=== PATIENT | female | born 1930 | race Caucasian/White ===

== ENCOUNTER 2017-11-02 21:08 | Inpatient (IN) | payer MEDICARE, MEDICAID ==
--- NOTE | 2017-11-02 22:01 | ED Physician Chart ---
ED Chief Complaint/HPI - Patient Information Date Seen:: 11/02/17 Time Seen:: 21:40 Chief Complaint:: leg swelling History of Present Illness:: Patient's had ankle and lower leg swelling for the last 3 months increased her last one week. She's also had mild shortness of breath but no complaint of chest pain. Allergies:: Allergies Allergy/AdvReac Type Severity Reaction Status Date / Time No Known Allergies Allergy Verified 11/02/17 21:39 Vitals:: Vital Signs - 8 hr 11/02/17 21:15 Temp 97.5 F HR 73 RR 18 BP 149/97 O2 Sat % 98 Historian:: Family Member Review:: Nurse's Note Reviewed ED Review of Systems - Review of Systems General/Constitutional: No fever, No chills Skin: No skin lesions Head: No headache Eyes: No loss of vision ENT: No earache Neck: No neck pain Cardio Vascular: No chest pain Pulmonary: SOB GI: No nausea, No vomiting, No diarrhea G/U: No dysuria Musculoskeletal: No bone or joint pain Endocrine: No polyuria, No polydipsia Psychiatric: Prior psych history Hematopoietic: No bruising Allergic/Immuno: No urticaria Neurological: No syncope ED Past Medical History - Past Medical History Past Medical History: HTN, Arthritis, Dementia, Other (depression) Family History: None Social History: Non Smoker, No Alcohol Surgical History: other (laparotomy) Psychiatricy History: None Family Medical History - Family Member Mother History Unknown: Yes ED Physical Exam - Physical Examination General/Constitutional: Well-developed, well-nourished, Alert, No distress Head: Atraumatic Eyes: Lids, conjuctiva normal, PERRL Skin: Nl inspection ENMT: External ears, nose nl, TM canals nl, Nasal exam nl Other ENMT comments:: Dentures Neck: No nuchal rigidity Respiratory: Nl effort/Exclusion, Clear to Auscultation Cardio Vascular: RRR, No murmur, gallop, rubs, NL S1 S2 GI: No tenderness/rebounding/guarding, Normal BS's Extremities: Normal digits & nails Neuro/Psych: No focal deficits Misc: Normal back ED Labs/Radiology/EKG Results - Lab Results Results: Laboratory Results - last 24 hr 11/02/17 11/02/17 11/02/17 22:07 22:07 22:07 WBC 3.1 L RBC 3.73 L Hgb 11.4 L Hct 33.1 L MCV 88.7 MCH 30.6 MCHC Differential 34.4 RDW 14.3 Plt Count 97 L MPV 10.3 Add Manual Diff YES Sodium 137 Potassium 3.9 Chloride 105 Carbon Dioxide 29.6 Anion Gap 6.3 L BUN 12 Creatinine 0.6 Est GFR ( Amer) TNP Est GFR (Non-Af Amer) TNP BUN/Creatinine Ratio 20.0 Glucose 100 Calcium 9.3 Total Bilirubin 1.2 H AST 64 H ALT 43 Alkaline Phosphatase 121 H Troponin I B-Natriuretic Peptide 139.0 H Total Protein 6.1 Albumin 3.0 L Globulin 3.1 Albumin/Globulin Ratio 1.0 11/02/17 22:07 WBC RBC Hgb Hct MCV MCH MCHC Differential RDW Plt Count MPV Add Manual Diff Sodium Potassium Chloride Carbon Dioxide Anion Gap BUN Creatinine Est GFR ( Amer) Est GFR (Non-Af Amer) BUN/Creatinine Ratio Glucose Calcium Total Bilirubin AST ALT Alkaline Phosphatase Troponin I < 0.01 L B-Natriuretic Peptide Total Protein Albumin Globulin Albumin/Globulin Ratio - Radiology Results Results: Chest x-ray negative Laboratory Results - last 24 hr 11/02/17 11/02/17 11/02/17 22:07 22:07 22:07 WBC 3.1 L RBC 3.73 L Hgb 11.4 L Hct 33.1 L MCV 88.7 MCH 30.6 MCHC Differential 34.4 RDW 14.3 Plt Count 97 L MPV 10.3 Add Manual Diff YES Sodium 137 Potassium 3.9 Chloride 105 Carbon Dioxide 29.6 Anion Gap 6.3 L BUN 12 Creatinine 0.6 Est GFR ( Amer) TNP Est GFR (Non-Af Amer) TNP BUN/Creatinine Ratio 20.0 Glucose 100 Calcium 9.3 Total Bilirubin 1.2 H AST 64 H ALT 43 Alkaline Phosphatase 121 H Troponin I B-Natriuretic Peptide 139.0 H Total Protein 6.1 Albumin 3.0 L Globulin 3.1 Albumin/Globulin Ratio 1.0 11/02/17 22:07 WBC RBC Hgb Hct MCV MCH MCHC Differential RDW Plt Count MPV Add Manual Diff Sodium Potassium Chloride Carbon Dioxide Anion Gap BUN Creatinine Est GFR ( Amer) Est GFR (Non-Af Amer) BUN/Creatinine Ratio Glucose Calcium Total Bilirubin AST ALT Alkaline Phosphatase Troponin I < 0.01 L B-Natriuretic Peptide Total Protein Albumin Globulin Albumin/Globulin Ratio - EKG Interpretations Rate & Rhythm: normal sinus rhythm with a rate is 72 [place]: normal axis ED Septic Shock - . Is Septic Shock (SBP<90, OR Lactate>4 mmol\L) present?: No - <6hrs of presentation: Vital Signs: Vital Signs - 8 hr 11/02/17 21:15 Temp 97.5 F HR 73 RR 18 BP 149/97 O2 Sat % 98 ED Reassessment (Disposition) - Reassessment Reassessment Condition:: Unchanged - Diagnosis Diagnosis:: Lower extremity edema; altered mental status; dementia; pancytopenia - Patient Disposition Admitted to:: Med/Surg Spoke to:: Chris Giraldo Admitting Medical Physician:: Chris Giraldo Condition at Disposition:: Stable, Unchanged
[2017-11-02 22:15] LABS: HEMOGLOBIN 11.4 gm/dL (12-16)
[2017-11-02 22:24] LABS: HEMATOCRIT 33.1 % (41.0-60); MEAN CELL VOLUME 88.7 fl (81-100); MEAN CORPUSCULAR HEMOGLOBIN 30.6 pg (27.0-31.0); MEAN CORPUSCULAR HGB CONC 34.4 pg (28.0-36.0); MEAN PLATELET VOLUME 10.3 fl; PLATELET COUNT 97 Th/cmm (150-400); RED BLOOD COUNT 3.73 Mil/cmm (3.80-5.20); RED CELL DISTRIBUTION WIDTH 14.3 % (11.5-20.0)
[2017-11-02 22:27] LABS: WHITE BLOOD COUNT 3.1 Th/cmm (4.8-10.8)
[2017-11-02 22:32] LABS: ALKALINE PHOSPHATASE 121 U/L (34-104); ANION GAP 6.3 (7.0-16.0); BILIRUBIN,TOTAL 1.2 mg/dL (0.3-1.0); BUN - UREA NITROGEN 12 mg/dL (7-25); CALCIUM SERUM 9.3 mg/dL (8.6-10.3); CARBON DIOXIDE 29.6 mEq/L (21.0-31.0); CHLORIDE 105 mEq/L (98-107); CREATININE - SERUM 0.6 mg/dL (0.6-1.2); GLUCOSE 100 mg/dL (70-105); POTASSIUM SERUM 3.9 mEq/L (3.5-5.1); SGOT 64 U/L (13-39); SGPT/ALT 43 U/L (7-52); SODIUM SERUM 137 mEq/L (136-145); TOTAL PROTEIN,SERUM 6.1 gm/dL (6.0-8.3)
[2017-11-02 23:20] LABS: BAND NEUTROPHILE 2 % (0-10); EOSINOPHIL 4 % (0-5); LYMPHOCYTE 25 % (20-50); MONOCYTE 15 % (2-10); NEUTROPHILS 54 % (40-80); PLATELET ESTIMATE ADEQUATE (NORMAL)
[2017-11-03] MEDS ORDERED: Haloperidol Lactate 5 mg/mL 1mL Vial IM PRN (01:45)
[2017-11-03] MEDS ORDERED: Haloperidol Lactate 5 mg/mL 1mL Vial ONE (01:58)
[2017-11-03] MEDS ORDERED: Haloperidol Lactate 5 mg/mL 1mL Vial IM ONE (02:15)
[2017-11-03 03:26] VITALS: BP 144/81
[2017-11-03 08:03] LABS: % BASOPHILS 1.2 % (0.0-2.0); % EOSINOPHILS 7.4 % (0.0-5.0); % LYMPHOCYTES 30.6 % (20.0-50.0); % NEUTROPHILS 46.8 % (40.0-80.0); EOSINOPHILE ABSOLUTE 0.2 Th/cmm (0.1-0.4); HEMATOCRIT 33.3 % (41.0-60); HEMOGLOBIN 11.2 gm/dL (12-16); MEAN CELL VOLUME 89.3 fl (81-100); MEAN CORPUSCULAR HEMOGLOBIN 30.1 pg (27.0-31.0); MEAN CORPUSCULAR HGB CONC 33.7 pg (28.0-36.0); MEAN PLATELET VOLUME 10.4 fl; MONOCYTE ABSOLUTE 0.4 Th/cmm (0.3-1.0); NEUTROPHILE ABSOLUTE 1.6 Th/cmm (1.8-8.0); PLATELET COUNT 71 Th/cmm (150-400); RED BLOOD COUNT 3.73 Mil/cmm (3.80-5.20); RED CELL DISTRIBUTION WIDTH 14.4 % (11.5-20.0)
--- NOTE | 2017-11-03 08:11 | Consultation ---
DATE OF CONSULTATION: 11/03/2017 AGE: 87. SEX: Female. PHYSICIAN: Dr. Giraldo. ENGINEER FISHING VESSEL: Dr. Hernandez. TYPE OF THE REPORT: Psychiatric consult. REASON FOR THE CONSULT: Agitation and confusion. HISTORY OF PRESENT ILLNESS: The patient is an 87-year-old female who was admitted to the hospital because of agitation and confusion. Chart reviewed and patient interviewed and discussed the patient's condition with the staff and reviewed records and labs. The patient is still increasingly agitated and increasingly irritable. The patient also is having trouble with her mood. The patient also has been in irritable and in angry mood and was not able to answer any of my questions currently in spite of trying to tell her simple sentences in [place] language. She was preoccupied and responding. The patient has lower extremity edema and she also has altered level of conscious and dementia. PAST PSYCHIATRIC HISTORY: The patient has history of dementia. Otherwise, no other psychiatric issues. PAST MEDICAL HISTORY: The patient admitted with lower extremity edema. SOCIAL HISTORY: The patient lives in half-way. No known alcohol or drug use. MENTAL STATUS EXAM: The patient appears her stated age. Irritable mood. Flat affect. Thought process was confusion. ASSESSMENT: PRIMARY DIAGNOSIS: Psychosis, unspecified. SECONDARY DIAGNOSIS: Dementia, moderate to severe, with psychotic features. TREATMENT PLAN: We will monitor the patient's behavior closely. We will start Seroquel on a p.r.n. basis. We will monitor her behavior. The patient might need admission to [facility]. Thanks to Dr. Giraldo and we will follow with you. [facility]# [id number]
[2017-11-03 08:17] LABS: WHITE BLOOD COUNT 3.2 Th/cmm (4.8-10.8)
[2017-11-03 08:20] LABS: ANION GAP 6.4 (7.0-16.0); BUN - UREA NITROGEN 9 mg/dL (7-25); CARBON DIOXIDE 25.8 mEq/L (21.0-31.0); CHLORIDE 108 mEq/L (98-107); CREATININE - SERUM 0.5 mg/dL (0.6-1.2); GLUCOSE 86 mg/dL (70-105); POTASSIUM SERUM 3.2 mEq/L (3.5-5.1); SODIUM SERUM 137 mEq/L (136-145)
--- NOTE | 2017-11-03 08:36 | Diagnostic Imaging Report ---
Portable chest x-ray Time: 2244 History: Edema Allowing for portable technique the heart size is normal. No focal pulmonary parenchymal processes. No hilar or mediastinal abnormalities. Impression: No acute abnormalities.
[2017-11-03] MEDS: Furosemide 40 mg/4mL UDC PO SCH (09:55)
[2017-11-03 14:28] LABS: URINE BILIRUBIN NEGATIVE (NEGATIVE); URINE BLOOD NEGATIVE (NEGATIVE); URINE GLUCOSE (UA) NEGATIVE (NEGATIVE); URINE KETONE NEGATIVE (NEGATIVE); URINE LEUKOCYTE ESTERASE NEGATIVE (NEGATIVE); URINE NITRATE NEGATIVE (NEGATIVE); URINE PH 6.5 (4.6 - 8.0); URINE PROTEIN NEGATIVE (NEGATIVE); URINE SOURCE MIDSTREAM; URINE UROBILINOGEN 0.2 E.U./dL (0.2 - 1.0)
[2017-11-03 14:34] LABS: URINE CLARITY CLEAR (CLEAR); URINE COLOR YELLOW
[2017-11-03 14:35] LABS: URINE MICROSCOPIC INDICATED? NO
[2017-11-03] MEDS ORDERED: Potassium Chloride 20 mEq ER Tab PO ONE (20:30)
--- NOTE | 2017-11-03 21:51 | Consultation ---
DATE OF CONSULTATION: 11/03/2017 HISTORY AND PHYSICAL: This 87-year-old female patient who has major depression, psychosis. The patient has aggressive behavior. Following this, the patient was brought to the Emergency Room. The patient did complain of swelling both lower extremities at the ankle area and hence the patient is admitted. Cardiac consult requested. PAST MEDICAL HISTORY: Hypertension, dementia, psychosis, major depression, pancytopenia. FAMILY HISTORY: Unremarkable. SOCIAL HISTORY: No history of smoking, alcohol abuse. ALLERGIES: No known allergies. PHYSICAL EXAMINATION: VITAL SIGNS: Blood pressure 140/90, pulse 70, respirations 20. HEAD: Normocephalic. No lumps or bumps. EYES: Pupils equal, reactive to light. Fundi show AV nicking, sclerae white, conjunctivae pink. NECK: Carotid 2+. Normal upstroke. JVD flat. Thyroid not palpable. Lymph nodes not palpable. CHEST: Shows increased AP diameter. No kyphosis, scoliosis. LUNGS: Bilateral bronchovesicular breath sounds. Occasional wheeze. No rales. HEART: PMI fifth intercostal space with lateral to midclavicular line. S1, S2. No S3, soft S4, soft systolic murmur. ABDOMEN: Soft. Liver, spleen not palpable. No organomegaly. Bowel sounds active. NEUROLOGIC: Unremarkable. EXTREMITIES: Peripheral pulses 2+. No pedal edema. CLINICAL IMPRESSION: 1. Mild congestive heart failure. BNP 130. 2. Hypertension. 3. Dementia. 4. Psychosis. 5. Major depression. 6. Pancytopenia. PLAN: The patient to be given Lasix 40 mg IV, now echocardiogram for left ventricular function and have a psych evaluation. [facility]# [id number]
[2017-11-04] MEDS: Furosemide 40 mg/4mL UDC PO SCH (08:52)
[2017-11-04 10:43] LABS: ANION GAP 8.7 (7.0-16.0); BUN - UREA NITROGEN 12 mg/dL (7-25); CARBON DIOXIDE 24.4 mEq/L (21.0-31.0); CHLORIDE 109 mEq/L (98-107); CREATININE - SERUM 0.7 mg/dL (0.6-1.2); GLUCOSE 141 mg/dL (70-105); POTASSIUM SERUM 4.1 mEq/L (3.5-5.1); SODIUM SERUM 138 mEq/L (136-145)
--- NOTE | 2017-11-04 12:54 | History & Physical ---
ADMIT DATE: 11/04/2017 CHIEF COMPLAINT: Agitation and aggressive behavior. HISTORY OF PRESENT ILLNESS: This is an 87-year-old female who was brought into the Emergency Room from long term facility due to aggressive behavior and agitation towards others and also the patient has been complaining of bilateral leg swelling for the past 3 months. REVIEW OF SYSTEMS: GENERAL: This is an 87-year-old female that appears as stated, no fever, no chills, no weakness. HEENT: Head: No headache. No dizziness. Eyes: No eye pain. No blurring of vision. NECK: No neck pain. No nuchal rigidity. CHEST: No chest pain. No palpitation. PULMONARY: No coughing. No shortness of breath. GASTROINTESTINAL: No abdominal pain. No constipation. No diarrhea. MUSCULOSKELETAL: No joint pain. No muscle pain. SOCIAL HISTORY: The patient lives in a long term facility prior to hospitalization. PSYCHIATRIC HISTORY: Includes dementia. PAST MEDICAL HISTORY: Includes hypertension. PAST SURGICAL HISTORY: Unremarkable. FAMILY HISTORY: Unremarkable. PHYSICAL EXAMINATION: VITAL SIGNS: Temperature 97.4, heart rate of 69, blood pressure 139/71, respiration of 18, 97% on room air. HEENT: Head is atraumatic, normocephalic. Eyes: Bilateral conjunctivae are clear. Bilateral pupils are equally round and reactive. NECK: Supple. No JVD. CARDIOVASCULAR: S1 and S2 without murmur. PULMONARY: Clear to auscultation. GASTROINTESTINAL: Soft and nontender without guarding. Positive bowel sounds. MUSCULOSKELETAL: No clubbing. No cyanosis noted. ASSESSMENT: 1. Dementia. 2. Hypertension. 3. Mild congestive heart failure. 4. Depression. 5. Osteoarthritis. PLAN: We will admit the patient to Med/Surg unit and will follow up with a psychiatrist and a calender worker helper. We are also going to do medication reconciliation accordingly. Treatment plans were discussed with the patient's nurse. Treatment plans were discussed with Dr. Giraldo. JOB# [id number]
[2017-11-04] MEDS ORDERED: DONEPEZIL HCL 23 MG PO SCH (21:00)
[2017-11-04] MEDS ORDERED: Non-Formulary Item 1 EA (Melatonin [Melatonin] 5 MG) PO SCH (21:00)
[2017-11-05 05:55] LABS: % EOSINOPHILS 4.3 % (0.0-5.0); % LYMPHOCYTES 20.4 % (20.0-50.0); % MONOCYTES 12.4 % (2.0-10.0); % NEUTROPHILS 61.9 % (40.0-80.0); EOSINOPHILE ABSOLUTE 0.2 Th/cmm (0.1-0.4); HEMOGLOBIN 11.9 gm/dL (12-16); LYMPHOCYTE ABSOLUTE 0.8 Th/cmm (1.5-3.0); MEAN CORPUSCULAR HGB CONC 34.1 pg (28.0-36.0); MONOCYTE ABSOLUTE 0.5 Th/cmm (0.3-1.0); NEUTROPHILE ABSOLUTE 2.3 Th/cmm (1.8-8.0); PLATELET COUNT 83 Th/cmm (150-400); RED BLOOD COUNT 3.97 Mil/cmm (3.80-5.20); RED CELL DISTRIBUTION WIDTH 14.4 % (11.5-20.0)
[2017-11-05 06:12] LABS: ANION GAP 6.4 (7.0-16.0); BUN - UREA NITROGEN 16 mg/dL (7-25); CALCIUM SERUM 8.9 mg/dL (8.6-10.3); CARBON DIOXIDE 28.8 mEq/L (21.0-31.0); CHLORIDE 104 mEq/L (98-107); CREATININE - SERUM 0.7 mg/dL (0.6-1.2); GLUCOSE 99 mg/dL (70-105); POTASSIUM SERUM 3.2 mEq/L (3.5-5.1); SODIUM SERUM 136 mEq/L (136-145)
[2017-11-05 06:24] LABS: WHITE BLOOD COUNT 3.8 Th/cmm (4.8-10.8)
[2017-11-05] MEDS: Levothyroxine 0.088 Mg Tab PO SCH (07:32)
[2017-11-05] MEDS: Furosemide 40 mg/4mL UDC PO SCH (08:20)
--- NOTE | 2017-11-05 10:28 | General Progress Note ---
Subjective - Review of Systems Events since last encounter: patient confused irritable leg swelling Objective - Results Result Diagrams: 11/05/17 04:51 11/05/17 04:51 Recent Labs: Laboratory Last Values WBC 3.8 Th/cmm (4.8-10.8) L 11/05/17 04:51 RBC 3.97 Mil/cmm (3.80-5.20) 11/05/17 04:51 Hgb 11.9 gm/dL (12-16) L 11/05/17 04:51 Hct 35.0 % (41.0-60) L 11/05/17 04:51 MCV 88.0 fl (81-100) 11/05/17 04:51 MCH 30.0 pg (27.0-31.0) 11/05/17 04:51 MCHC Differential 34.1 pg (28.0-36.0) 11/05/17 04:51 RDW 14.4 % (11.5-20.0) 11/05/17 04:51 Plt Count 83 Th/cmm (150-400) L 11/05/17 04:51 MPV 11.0 fl 11/05/17 04:51 Add Manual Diff YES 11/02/17 22:07 Neutrophils % 61.9 % (40.0-80.0) 11/05/17 04:51 Band Neutrophils % 2 % (0-10) 11/02/17 22:07 Lymphocytes % 20.4 % (20.0-50.0) 11/05/17 04:51 Monocytes % 12.4 % (2.0-10.0) H 11/05/17 04:51 Eosinophils % 4.3 % (0.0-5.0) 11/05/17 04:51 Basophils % 1.0 % (0.0-2.0) 11/05/17 04:51 Neutrophils (Manual) 54 % (40-80) 11/02/17 22:07 Lymphocytes 25 % (20-50) 11/02/17 22:07 Monocytes 15 % (2-10) H 11/02/17 22:07 Eosinophils 4 % (0-5) 11/02/17 22:07 Platelet Estimate ADEQUATE (NORMAL) 11/02/17 22:07 Sodium 136 mEq/L (136-145) 11/05/17 04:51 Potassium 3.2 mEq/L (3.5-5.1) L 11/05/17 04:51 Chloride 104 mEq/L (98-107) 11/05/17 04:51 Carbon Dioxide 28.8 mEq/L (21.0-31.0) 11/05/17 04:51 Anion Gap 6.4 (7.0-16.0) L 11/05/17 04:51 BUN 16 mg/dL (7-25) 11/05/17 04:51 Creatinine 0.7 mg/dL (0.6-1.2) 11/05/17 04:51 Est GFR ( Amer) TNP 11/05/17 04:51 Est GFR (Non-Af Amer) TNP 11/05/17 04:51 BUN/Creatinine Ratio 22.9 11/05/17 04:51 Glucose 99 mg/dL (70-105) 11/05/17 04:51 Calcium 8.9 mg/dL (8.6-10.3) 11/05/17 04:51 Total Bilirubin 1.2 mg/dL (0.3-1.0) H 11/02/17 22:07 AST 64 U/L (13-39) H 11/02/17 22:07 ALT 43 U/L (7-52) 11/02/17 22:07 Alkaline Phosphatase 121 U/L (34-104) H 11/02/17 22:07 Troponin I < 0.01 ng/mL (0.01-0.05) L 11/02/17 22:07 B-Natriuretic Peptide 31.2 pg/mL (5.0-100.0) 11/05/17 04:51 Total Protein 6.1 gm/dL (6.0-8.3) 11/02/17 22:07 Albumin 3.0 gm/dL (3.7-5.3) L 11/02/17 22:07 Globulin 3.1 gm/dL 11/02/17 22:07 Albumin/Globulin Ratio 1.0 (1.0-1.8) 11/02/17 22:07 TSH 12.77 uIU/ml (0.34-5.60) H 11/03/17 07:40 Urine Source MIDSTREAM 11/03/17 10:33 Urine Color YELLOW 11/03/17 10:33 Urine Clarity CLEAR (CLEAR) 11/03/17 10:33 Urine pH 6.5 (4.6 - 8.0) 11/03/17 10:33 Ur Specific [place] 1.010 (1.005-1.030) 11/03/17 10:33 Urine Protein NEGATIVE mg/dL (NEGATIVE) 11/03/17 10:33 Urine Glucose (UA) NEGATIVE mg/dL (NEGATIVE) 11/03/17 10:33 Urine Ketones NEGATIVE mg/dL (NEGATIVE) 11/03/17 10:33 Urine Blood NEGATIVE (NEGATIVE) 11/03/17 10:33 Urine Nitrate NEGATIVE (NEGATIVE) 11/03/17 10:33 Urine Bilirubin NEGATIVE (NEGATIVE) 11/03/17 10:33 Urine Urobilinogen 0.2 E.U./dL (0.2 - 1.0) 11/03/17 10:33 Ur Leukocyte Esterase NEGATIVE (NEGATIVE) 11/03/17 10:33 - Physical Exam Vitals and I&O: Vital Signs Temp 97.4 F 11/05/17 04:00 Pulse 77 11/05/17 04:00 Resp 17 11/05/17 04:00 BP 140/80 11/05/17 08:20 Pulse Ox 96 11/05/17 04:00 Intake & Output 11/04/17 11/05/17 11/05/17 18:59 06:59 18:59 Intake Total 1000 0 Balance 1000 0 Weight (lbs) 51.165 kg 49.895 kg Intake: Oral 1000 0 Other: # Voids 4 3 # Bowel Movements 1 0 Weight Source Bedscale Bedscale Active Medications: Current Medications Acetaminophen (Tylenol) 650 mg PO Q4HR PRN PRN Reason: Pain (Mild) Stop: 01/03/18 10:44 Donepezil HCl (Aricept) 10 mg PO DAILY [facility] Stop: 01/04/18 08:59 Last Admin: 11/05/17 08:21 Dose: 10 mg Furosemide (Lasix) 40 mg PO DAILY ZAIDA Stop: 01/02/18 08:59 Last Admin: 11/05/17 08:20 Dose: 40 mg Levothyroxine Sodium (Synthroid) 0.088 mg PO QDAC [facility] Stop: 01/04/18 07:29 Last Admin: 11/05/17 07:32 Dose: 0.088 mg Lorazepam (Ativan) 1 mg IVP Q4HR PRN; Protocol PRN Reason: Agitation Stop: 01/02/18 07:14 Last Admin: 11/04/17 20:54 Dose: 1 mg Quetiapine Fumarate (Seroquel) 12.5 mg PO BID PRN; Protocol PRN Reason: Agitation Stop: 01/02/18 07:39 Quetiapine Fumarate (Seroquel) 12.5 mg PO BID ZAIDA; Protocol Stop: 01/04/18 16:59
--- NOTE | 2017-11-05 10:31 | Progress Notes ---
DATE: 11/05/2017 SUBJECTIVE: Chart reviewed and the patient interviewed. Also discussed the patient's condition with the staff and reviewed records and labs. The patient still gets agitated and irritable easily. The patient also is still confused. She also is interacting minimally with others. The patient also is suspicious and paranoid. Otherwise, the patient is compliant with taking her medications with no side effects of medications. ASSESSMENT: The patient is still agitated. TREATMENT PLAN: We will increase Seroquel to 12.5 mg twice a day and also on a p.r.n. basis. Also, continue to monitor behavior and work on her irritability and poor impulse control. JOB# [id number]
[2017-11-05] MEDS ORDERED: Potassium Chloride 20 mEq ER Tab PO ONE (14:26)
--- NOTE | 2017-11-05 16:28 | Cardiology ---
11/04/2017 PATIENT OF: Dr. Giraldo. M-MODE ECHOCARDIOGRAM: Mitral valve, anterior leaflet of mitral valve shows normal excursion, EF velocity. Posterior leaflet of the mitral valve shows normal excursion. Left ventricular posterior wall shows increased thickness, normal excursion. Interventricular septum shows increased thickness, normal excursion, minimal hypertrophy of the left ventricle, ejection fraction 69%. Left atrium normal. Aortic root shows normal dimension, normal excursion of aortic leaflets. CONCLUSION: Minimal hypertrophy of the left ventricle, ejection fraction at 67%. 2D ECHO: Long axis view showed normal sized left ventricle with hypertrophy of the left ventricle, ejection fraction 67%. Left atrium normal. Aortic root shows normal dimension, normal excursion of aortic leaflets. Short axis view of mitral valve normal. Short axis view of aortic valve normal. Apical four chamber view showed normal sized left ventricle with hypertrophy of the left ventricle. Left atrium normal. Right ventricular cavity, right atrium normal, no pericardial effusion. CONCLUSION: Hypertrophy of the left ventricle, ejection fraction 67%. Doppler study shows mild mitral regurgitation, mild tricuspid regurgitation. JOB# [id number]
[2017-11-06 05:18] LABS: ANION GAP 7.6 (7.0-16.0); BUN - UREA NITROGEN 17 mg/dL (7-25); CALCIUM SERUM 8.6 mg/dL (8.6-10.3); CARBON DIOXIDE 26.1 mEq/L (21.0-31.0); CHLORIDE 107 mEq/L (98-107); CREATININE - SERUM 0.7 mg/dL (0.6-1.2); GLUCOSE 92 mg/dL (70-105); POTASSIUM SERUM 3.7 mEq/L (3.5-5.1); SODIUM SERUM 137 mEq/L (136-145)
[2017-11-06] MEDS: Levothyroxine 0.088 Mg Tab PO SCH (07:08)
--- NOTE | 2017-11-06 08:17 | Diagnostic Imaging Report ---
Bilateral lower extremity Doppler arterial ultrasound exam HISTORY: Pain Sonographic sector images were obtained through the arterial systems of both legs. Associated Doppler data was obtained. The exam is limited due to lack of patient cooperation and patient combativeness. Ankle brachial indices could not be obtained. The right leg demonstrates biphasic waveforms within the common femoral, superficial femoral, popliteal, anterior tibial, posterior tibial, and dorsalis pedis arteries. No focal significant narrowing or stenosis. The left leg demonstrates triphasic waveforms within the common femoral artery. Biphasic waveforms are seen through the remainder of the arterial system. Mild diffuse atherosclerotic changes are sonographically demonstrated. IMPRESSION: 1. Limited exam due to lack of patient cooperation combativeness 2. Evidence of mild diffuse bilateral atherosclerotic changes
--- NOTE | 2017-11-06 08:28 | Diagnostic Imaging Report ---
Bilateral lower extremity Doppler venous ultrasound exam HISTORY: Pain/swelling Sonographic sector images were obtained through the deep venous systems of both legs. Associated Doppler data was obtained. The exam demonstrates patency of the common femoral, superficial femoral, popliteal, and posterior tibial veins bilaterally. Specifically, no thrombus is seen. There are normal compressibility and augmentation responses. IMPRESSION: Negative exam for deep vein thrombophlebitis.
[2017-11-06] MEDS: Furosemide 40 mg/4mL UDC PO SCH (08:57)
--- NOTE | 2017-11-06 15:04 | General Progress Note ---
Subjective - Review of Systems Events since last encounter: patient confused in no acute distress Objective - Results Result Diagrams: 11/05/17 04:51 11/06/17 04:45 Recent Labs: Laboratory Last Values WBC 3.8 Th/cmm (4.8-10.8) L 11/05/17 04:51 RBC 3.97 Mil/cmm (3.80-5.20) 11/05/17 04:51 Hgb 11.9 gm/dL (12-16) L 11/05/17 04:51 Hct 35.0 % (41.0-60) L 11/05/17 04:51 MCV 88.0 fl (81-100) 11/05/17 04:51 MCH 30.0 pg (27.0-31.0) 11/05/17 04:51 MCHC Differential 34.1 pg (28.0-36.0) 11/05/17 04:51 RDW 14.4 % (11.5-20.0) 11/05/17 04:51 Plt Count 83 Th/cmm (150-400) L 11/05/17 04:51 MPV 11.0 fl 11/05/17 04:51 Add Manual Diff YES 11/02/17 22:07 Neutrophils % 61.9 % (40.0-80.0) 11/05/17 04:51 Band Neutrophils % 2 % (0-10) 11/02/17 22:07 Lymphocytes % 20.4 % (20.0-50.0) 11/05/17 04:51 Monocytes % 12.4 % (2.0-10.0) H 11/05/17 04:51 Eosinophils % 4.3 % (0.0-5.0) 11/05/17 04:51 Basophils % 1.0 % (0.0-2.0) 11/05/17 04:51 Neutrophils (Manual) 54 % (40-80) 11/02/17 22:07 Lymphocytes 25 % (20-50) 11/02/17 22:07 Monocytes 15 % (2-10) H 11/02/17 22:07 Eosinophils 4 % (0-5) 11/02/17 22:07 Platelet Estimate ADEQUATE (NORMAL) 11/02/17 22:07 Sodium 137 mEq/L (136-145) 11/06/17 04:45 Potassium 3.7 mEq/L (3.5-5.1) 11/06/17 04:45 Chloride 107 mEq/L (98-107) 11/06/17 04:45 Carbon Dioxide 26.1 mEq/L (21.0-31.0) 11/06/17 04:45 Anion Gap 7.6 (7.0-16.0) 11/06/17 04:45 BUN 17 mg/dL (7-25) 11/06/17 04:45 Creatinine 0.7 mg/dL (0.6-1.2) 11/06/17 04:45 Est GFR ( Amer) TNP 11/06/17 04:45 Est GFR (Non-Af Amer) TNP 11/06/17 04:45 BUN/Creatinine Ratio 24.3 11/06/17 04:45 Glucose 92 mg/dL (70-105) 11/06/17 04:45 Calcium 8.6 mg/dL (8.6-10.3) 11/06/17 04:45 Total Bilirubin 1.2 mg/dL (0.3-1.0) H 11/02/17 22:07 AST 64 U/L (13-39) H 11/02/17 22:07 ALT 43 U/L (7-52) 11/02/17 22:07 Alkaline Phosphatase 121 U/L (34-104) H 11/02/17 22:07 Troponin I < 0.01 ng/mL (0.01-0.05) L 11/02/17 22:07 B-Natriuretic Peptide 31.2 pg/mL (5.0-100.0) 11/05/17 04:51 Total Protein 6.1 gm/dL (6.0-8.3) 11/02/17 22:07 Albumin 3.0 gm/dL (3.7-5.3) L 11/02/17 22:07 Globulin 3.1 gm/dL 11/02/17 22:07 Albumin/Globulin Ratio 1.0 (1.0-1.8) 11/02/17 22:07 TSH 12.77 uIU/ml (0.34-5.60) H 11/03/17 07:40 Urine Source MIDSTREAM 11/03/17 10:33 Urine Color YELLOW 11/03/17 10:33 Urine Clarity CLEAR (CLEAR) 11/03/17 10:33 Urine pH 6.5 (4.6 - 8.0) 11/03/17 10:33 Ur Specific [place] 1.010 (1.005-1.030) 11/03/17 10:33 Urine Protein NEGATIVE mg/dL (NEGATIVE) 11/03/17 10:33 Urine Glucose (UA) NEGATIVE mg/dL (NEGATIVE) 11/03/17 10:33 Urine Ketones NEGATIVE mg/dL (NEGATIVE) 11/03/17 10:33 Urine Blood NEGATIVE (NEGATIVE) 11/03/17 10:33 Urine Nitrate NEGATIVE (NEGATIVE) 11/03/17 10:33 Urine Bilirubin NEGATIVE (NEGATIVE) 11/03/17 10:33 Urine Urobilinogen 0.2 E.U./dL (0.2 - 1.0) 11/03/17 10:33 Ur Leukocyte Esterase NEGATIVE (NEGATIVE) 11/03/17 10:33 - Physical Exam Vitals and I&O: Vital Signs Temp 97.2 F 11/06/17 12:00 Pulse 97 11/06/17 12:00 Resp 18 11/06/17 12:00 BP 118/62 11/06/17 12:00 Pulse Ox 97 11/06/17 12:00 Intake & Output 11/05/17 11/06/17 11/06/17 18:59 06:59 18:59 Intake Total 1350 Balance 1350 Weight (lbs) 49.895 kg 49.033 kg 49.033 kg Intake: Oral 1350 Other: # Voids 4 1 3 # Bowel Movements 1 Stool Characteristics Soft Formed Weight Source Bedscale Bedscale Bedscale Active Medications: Current Medications Acetaminophen (Tylenol) 650 mg PO Q4HR PRN PRN Reason: Pain (Mild) Stop: 01/03/18 10:44 Donepezil HCl (Aricept) 10 mg PO DAILY [facility] Stop: 01/04/18 08:59 Last Admin: 11/06/17 08:58 Dose: 10 mg Furosemide (Lasix) 40 mg PO DAILY [facility] Stop: 01/02/18 08:59 Last Admin: 11/06/17 08:57 Dose: 40 mg Levothyroxine Sodium (Synthroid) 0.088 mg PO QDAC [facility] Stop: 01/04/18 07:29 Last Admin: 11/06/17 07:08 Dose: 0.088 mg Lorazepam (Ativan) 1 mg IVP Q4HR PRN; Protocol PRN Reason: Agitation Stop: 01/02/18 07:14 Last Admin: 11/04/17 20:54 Dose: 1 mg Quetiapine Fumarate (Seroquel) 12.5 mg PO BID PRN; Protocol PRN Reason: Agitation Stop: 01/02/18 07:39 Quetiapine Fumarate (Seroquel) 12.5 mg PO BID [facility]AIDA; Protocol Stop: 01/04/18 16:59 Last Admin: 11/06/17 08:57 Dose: 12.5 mg
--- NOTE | 2017-11-06 23:04 | Progress Notes ---
DATE: 11/06/2017 Case was discussed with staff of the patient, reviewed records. Covering for Dr. Hernandez. The patient is an 87-year-old female, who Dr. Hernandez saw was consulted because of agitation and confusion. The patient is a poor historian. The patient continues to be confused, minimally interactive, paranoid, suspicious, compliant with the medication with no side effects. She is on Seroquel 12.5 mg twice a day and also on a p.r.n. basis. No side effects to the medication, no sedation, no nausea, no extrapyramidal symptoms. Thank you very much for allowing me to participate in the care of this most interesting lady. JOB# [id number]
--- NOTE | 2017-11-10 20:55 | Discharge Summary ---
DATE OF DISCHARGE: 11/06/2017 ____ HOSPITAL COURSE: The patient was admitted because of severe agitation and aggressive behavior. The patient has also history of ____mild congestive heart failure ____. The patient was in stable condition. ____ on 11/06/2017, discharged to ____ in stable condition where I will be following the patient. MEDICATIONS: See the medication reconciliation sheet. [facility]# [id number]
== END 2017-11-06 17:37 | DRG 291 ==
LOC: ER 21:08 → MSI 11-03 00:37
PROVIDERS: ADMIT Internal Medicine; ATTEND Internal Medicine
DX: I11.0 Hypertensive heart disease with heart failure (principal); E41 Nutritional marasmus; F23 Brief psychotic disorder; D61.818 Other pancytopenia; F03.91 Unspecified dementia, unspecified severity, with behavioral disturbance; I50.23 Acute on chronic systolic (congestive) heart failure; F29 Unspecified psychosis not due to a substance or known physiological condition; M19.90 Unspecified osteoarthritis, unspecified site; F32.9 Major depressive disorder, single episode, unspecified; D75.89 Other specified diseases of blood and blood-forming organs; Z68.21 Body mass index [BMI] 21.0-21.9, adult
CPT/HCPCS: 36415-UA; 71045-TC; 80048-TC; 80053-TC; 81003-TC; 83880-TC; 84443-TC; 84484-TC; 85007-TC; 85025-TC; 93005; 93925-TC; 93970-TC-50; J1200; J1630; J2060; Z7610